=== PATIENT | female | born 1980 | race Caucasian/White ===

== ENCOUNTER → 2017-02-10 | Outpatient (CLI) | payer OTHER ==
--- NOTE | 2017-02-10 12:51 | REP ---
Clinical: Recent trauma. Technique: AP view of the chest with multiple oblique views of the left hemithorax. Findings: Nondisplaced acute fracture of the left eighth and ninth ribs. Trace left basilar atelectasis. No pleural effusion or pneumothorax. Impression: Acute left eighth and ninth rib fractures. This left basilar atelectasis. Signed by Juan Carlos Schmitz MD 02/10/2017 12:43 P
== END ==
LOC: M ADAMS 12:19
PROVIDERS: ATTEND Physician Assistant
DX: R07.9 Chest pain, unspecified (principal)

== ENCOUNTER → 2017-04-03 | Outpatient (REF) | payer OTHER ==
[2017-04-03 12:36] LABS: BASO % 0.8 % (0.0-1.0); EOS % 1.7 % (0.0-3.0); LARGE UNSTAINED CELL # 0.1 K/mm3 (0.0-0.4); LARGE UNSTAINED CELL % 3.4 % (0.0-4.0); LYMPH # 1.3 K/mm3 (1.5-4.5); LYMPH % 47.1 % (24.0-44.0); MEAN CORPUSCULAR HEMOGLOBIN 35.8 pg (27.0-33.0); MEAN CORPUSCULAR HGB CONC 34.1 g/dl (32.0-36.5); MEAN CORPUSCULAR VOLUME 105.1 fl (80.0-96.0); MONO # 0.2 K/mm3 (0.0-0.8); MONO % 5.8 % (0.0-5.0); NEUTROPHILS # 1.2 K/mm3 (1.8-7.7); NEUTROPHILS % 41.2 % (36.0-66.0); PLATELET COUNT, AUTOMATED 178 k/mm3 (150-450); RED CELL DISTRIBUTION WIDTH 11.7 % (11.5-14.5); WHITE BLOOD COUNT 2.8 K/mm3 (4.0-10.0)
== END ==
LOC: M LABDRWAD 12:05
PROVIDERS: ATTEND Physician Assistant Medical
DX: M79.671 Pain in right foot (principal)

== ENCOUNTER → 2017-10-03 | Outpatient (REF) | payer OTHER | LOC: M LAB REF 13:27 | PROVIDERS: ATTEND Nurse Practitioner Adult Health | DX: D64.9 Anemia, unspecified (principal) ==

== ENCOUNTER → 2017-10-08 | Outpatient (REF) | payer OTHER | LOC: M LAB REF 20:52 | PROVIDERS: ATTEND Physician Assistant | DX: N39.0 Urinary tract infection, site not specified (principal) ==

== ENCOUNTER → 2017-12-26 | Outpatient (REF) | payer OTHER | LOC: M LAB REF 18:14 | DX: N30.01 Acute cystitis with hematuria (principal) ==

== ENCOUNTER → 2018-09-30 | Outpatient (REF) | payer OTHER | LOC: M LAB REF 19:22 | DX: R30.0 Dysuria (principal) ==

== ENCOUNTER → 2018-10-10 | Outpatient (REF) | payer OTHER ==
[2018-10-11 15:11] LABS: HEPATITIS A ANTIBODY IGM NEGATIVE (NEGATIVE); HEPATITIS B CORE ANTIBODY IGM NEGATIVE (NEGATIVE); HEPATITIS B SURFACE ANTIGEN NEGATIVE (NEGATIVE)
[2018-10-11 15:11] LABS: HEPATITIS C VIRUS ABY INDEX 0.1 INDEX (<0.8)
== END ==
LOC: M LAB REF 13:15
DX: R74.8 Abnormal levels of other serum enzymes (principal)
CPT/HCPCS: 87340

== ENCOUNTER → 2019-07-11 | Outpatient (REF) | payer OTHER | LOC: M LAB REF 12:34 | PROVIDERS: ATTEND Nurse Practitioner Family | DX: I10 Essential (primary) hypertension (principal) ==

== ENCOUNTER 2020-03-09 16:20 | Emergency (ER) | payer OTHER ==
[~2020-03-09] VITALS: Ht 162.6 cm; Wt 59.2 kg
[2020-03-09] MEDS ORDERED: LEVO25TA5 (16:30)
[2020-03-09] MEDS ORDERED: SERT50TA29 (16:30)
[2020-03-09 18:03] LABS: BASO # 0.1 10^3/uL (0.0-0.2); BASO % 1.6 % (0.0-1.0); HEMATOCRIT 39.6 % (36.0-47.0); HEMOGLOBIN 13.5 g/dl (12.0-15.5); LYMPH # 1.1 10^3/uL (1.5-5.0); LYMPH % 29.9 % (24.0-44.0); MEAN CORPUSCULAR HEMOGLOBIN 35.4 pg (27.0-33.0); MEAN CORPUSCULAR HGB CONC 34.1 g/dl (32.0-36.5); MEAN CORPUSCULAR VOLUME 103.9 fl (80.0-96.0); MONO # 0.6 10^3/uL (0.0-0.8); MONO % 15.7 % (0.0-5.0); NEUTROPHILS % 52.5 % (36.0-66.0); PLATELET COUNT, AUTOMATED 105 10^3/uL (150-450); RED BLOOD COUNT 3.81 10^6/uL (4.00-5.40); WHITE BLOOD COUNT 3.8 10^3/uL (4.0-10.0)
[2020-03-09 18:11] LABS: APPEARANCE, URINE CLEAR (CLEAR); BACTERIA, URINE AUTO NEGATIVE (NEGATIVE); BILIRUBIN, URINE AUTO NEGATIVE (NEGATIVE); BLOOD, URINE BLOOD NEGATIVE (NEGATIVE); COLOR, URINE YELLOW (YELLOW); GLUCOSE, URINE (UA) AUTO NEGATIVE (NEGATIVE); KETONE, URINE AUTO 2+ mg/dL (NEGATIVE); LEUKOCYTE ESTERASE, URINE AUTO NEGATIVE (NEGATIVE); NITRITE, URINE AUTO NEGATIVE (NEGATIVE); PROTEIN, URINE AUTO 1+ mg/dL (NEGATIVE); RBC, URINE AUTO 1 /HPF (0-3); SPECIFIC GRAVITY URINE AUTO 1.011 (1.002-1.035); SQUAMOUS EPITHELIAL CELL UR AU 0 /HPF (0-6); UROBILINOGEN, URINE AUTO 0.2 mg/dL (0.0-2.0); WBC, URINE AUTO 1 /HPF (0-3)
[2020-03-09 18:25] LABS: BLOOD UREA NITROGEN 8 MG/DL (7-18); CALCIUM LEVEL 9.9 MG/DL (8.5-10.1); CARBON DIOXIDE LEVEL 24 MEQ/L (21-32); CHLORIDE LEVEL 92 MEQ/L (98-107); GLOMERULAR FILTRATION RATE > 60.0 (>60); GLUCOSE, FASTING 79 MG/DL (70-100); SODIUM LEVEL 128 MEQ/L (136-145)
[2020-03-09] MEDS ORDERED: PROHANCE 279.3MG/ML 15ML VIAL As Ordered ONE (18:44)
[2020-03-09 19:06] LABS: ALBUMIN 4.2 GM/DL (3.2-5.2); ALT/SGPT 123 U/L (12-78); BILIRUBIN,DIRECT 0.3 MG/DL (0.0-0.2); BILIRUBIN,TOTAL 1.4 MG/DL (0.2-1.0); C REACTIVE PROTEIN QUANTITATIV 0.43 MG/DL (0.00-0.30); TOTAL PROTEIN 8.1 GM/DL (6.4-8.2)
[2020-03-09 19:21] LABS: ERYTHROCYTE SEDIMENTATION RATE 30 mm/hr (0-20)
--- NOTE | 2020-03-09 19:30 | REPVR ---
PROCEDURE INFORMATION: Exam: MR Head Without and With Contrast Exam date and time: 03/09/2020 7:20 PM Age: 39 years old Clinical indication: Visual disturbance; Patient HX: PT states severe h/a for 6 months and worsening, recent vision changes, RT eye buldging facial pain, memory fog, and slight cognitive changes; Additional info: Vision changes, headache x6 months TECHNIQUE: Imaging protocol: MR of the head without and with intravenous contrast. Contrast material: PROHANCE; Contrast volume: 11 ml; Contrast route: 22 COMPARISON: No relevant prior studies available. FINDINGS: No abnormal diffusion restriction to indicate acute CVA. Midline structures and cerebellar tonsillar position appear normal. Ventricles, cisterns and sulci are symmetric and prominent for age. No intracranial mass, midline shift, or abnormal extra-axial fluid. No acute intracranial hemorrhage. White matter structures demonstrate no abnormal FLAIR or T2 signal. CP angle cisterns show normal CSF signal without effacement or mass. No abnormal parenchymal or meningeal enhancement with gadolinium. Vascular flow voids are preserved in vertebro-basilar and carotid vessels. Major dural venous sinuses appear patent. Paranasal sinuses and mastoid air cells are normally aerated. Ocular globes and orbits are unremarkable. No soft tissue abnormality or asymmetry in the posterior nasopharynx. IMPRESSION: No acute intracranial abnormality. Mild symmetric prominence of extra-axial CSF spaces suggesting mild atrophy more than expected for age Electronically signed by: Jose Garcia On 03/09/2020 19:30:30 PM
--- NOTE | 2020-03-09 19:32 | REPVR ---
PROCEDURE INFORMATION: Exam: MR Orbit Without and With Contrast Exam date and time: 03/09/2020 7:19 PM Age: 39 years old Clinical indication: Exophthalmos (bulging eyes); Intermittent exophthalmos; Bilateral; Patient HX: PT states severe h/a for 6 months and worsening, recent vision changes, RT eye buldging facial pain, memory fog, and slight cognitive changes; Additional info: Vision changes, headache x6 months TECHNIQUE: Imaging protocol: MR Orbit was performed without and with intravenous contrast. 3D rendering: MIP and/or 3D reconstructed images were created by the technologist. Contrast material: PROHANCE; Contrast volume: 11 ml; Contrast route: 22; COMPARISON: No relevant prior studies available. FINDINGS: Slightly degraded study secondary to patient motion Optic globes appear normal. No abnormal enhancement or mass No asymmetric enlargement or enhancement of optic nerves. No infiltration of intraconal orbital fat. Normal symmetry and enhancement of extraocular muscles. Normal vascular flow voids in vertebrobasilar/carotid vessels and dural sinuses. No abnormal enhancement of imaged brain parenchyma or meninges. Paranasal sinuses and mastoids show normal aeration IMPRESSION: Unremarkable pre and post contrast MRI of the orbits. No evidence of optic neuritis, mass or other concerning abnormality to explain clinical symptoms Electronically signed by: Jose Garcia On 03/09/2020 19:32:19 PM
[2020-03-09 20:09] VITALS: BP 136/90
[2020-03-09 20:25] LABS: BLOOD UREA NITROGEN 8 MG/DL (7-18); CALCIUM LEVEL 9.9 MG/DL (8.5-10.1); CARBON DIOXIDE LEVEL 23 MEQ/L (21-32); CHLORIDE LEVEL 97 MEQ/L (98-107); CREATININE FOR GFR 0.57 MG/DL (0.55-1.30); GLOMERULAR FILTRATION RATE > 60.0 (>60); GLUCOSE, FASTING 84 MG/DL (70-100); POTASSIUM SERUM 3.9 MEQ/L (3.5-5.1); SODIUM LEVEL 133 MEQ/L (136-145)
[2020-03-10 10:45] LABS: HEPATITIS B SURFACE ANTIGEN NEGATIVE (NEGATIVE)
[2020-03-10 11:13] LABS: HEPATITIS B CORE ANTIBODY IGM NEGATIVE (NEGATIVE); HEPATITIS C VIRUS ABY INDEX 0.1 INDEX (<0.8)
[2020-03-10 11:28] LABS: HEPATITIS A ANTIBODY IGM NEGATIVE (NEGATIVE)
== END 2020-03-09 21:02 | disposition home or self-care (01) ==
LOC: M ED 16:20
DX: H53.9 Unspecified visual disturbance (principal); R79.89 Other specified abnormal findings of blood chemistry; G31.9 Degenerative disease of nervous system, unspecified; E03.9 Hypothyroidism, unspecified; Z79.899 Other long term (current) drug therapy
CPT/HCPCS: 70543; 70553; 80048; 80076; 81001; 82140; 85025; 85652; 86140; 86705; 86709; 86803; 87340; 99284; A9576

== ENCOUNTER → 2020-03-11 | Outpatient (REF) | payer OTHER ==
[~2020-03-11] MED LIST: LEVO25TA5; SERT50TA29
[2020-03-11 19:31] LABS: FERRITIN 1653 NG/ML (8-252); IRON (FE) 151 UG/DL (50-170); PERCENT SATURATION 45.6 % (13.2-45.0); TOTAL IRON BINDING CAPACITY 331 UG/DL (250-450)
[2020-03-11 19:32] LABS: FOLATE > 24.0 NG/ML; VITAMIN B12 LEVEL 374 PG/ML
== END ==
LOC: M LAB REF 17:24
PROVIDERS: ATTEND Internal Medicine
DX: D64.9 Anemia, unspecified (principal)

== ENCOUNTER → 2020-03-17 | Outpatient (REF) | payer OTHER | LOC: M LAB REF 11:13 | PROVIDERS: ATTEND Internal Medicine | DX: F10.180 Alcohol abuse with alcohol-induced anxiety disorder (principal); R94.5 Abnormal results of liver function studies ==

== ENCOUNTER → 2020-04-13 | Outpatient (CLI) | payer OTHER ==
--- NOTE | 2020-04-13 19:01 | REP ---
Clinical: Elevated liver function tests. Technique: Real time frazier scale ultrasound examination using curved array transducer. Findings: The liver is mildly hyperechoic suggesting fatty infiltration. No focal hepatic lesions are identified. Pancreas is normal in appearance and echogenicity. The gallbladder is unremarkable and without gallstones, wall thickening, or pericholecystic fluid. No biliary ductal dilatation is appreciated and the common bile duct measures 3.7 mm diameter. The right kidney is normal in reniform shape without hydronephrosis and measures 11.3 x 5.2 x 5.0 cm. No ascites in the visualized right upper quadrant. Impression: Mild hepatic steatosis suggested without focal hepatic lesion. Electronically Signed by Juan Carlos Schmitz MD 04/13/2020 06:53 P
== END ==
LOC: M RAD 07:50
PROVIDERS: ATTEND Internal Medicine
DX: R74.8 Abnormal levels of other serum enzymes (principal)

== ENCOUNTER → 2020-04-30 | Outpatient (REF) | payer OTHER ==
[2020-04-30 16:58] LABS: PERCENT SATURATION 42.5 % (13.2-45.0)
== END ==
LOC: M LAB REF 16:11
PROVIDERS: ATTEND Internal Medicine
DX: D64.9 Anemia, unspecified (principal)

== ENCOUNTER → 2020-08-05 | Outpatient (REF) | payer OTHER | LOC: M LAB REF 12:24 | PROVIDERS: ATTEND Physician Assistant | DX: N39.0 Urinary tract infection, site not specified (principal) ==

== ENCOUNTER → 2020-08-26 | Outpatient (REF) | payer OTHER | LOC: M LAB REF 12:12 | PROVIDERS: ATTEND Internal Medicine | DX: G60.9 Hereditary and idiopathic neuropathy, unspecified (principal) ==

== ENCOUNTER 2020-10-15 14:19 | Emergency (ER) | payer OTHER ==
[~2020-10-15] VITALS: Ht 162.6 cm; Wt 64.3 kg
[2020-10-15 15:57] LABS: VENOUS BASE EXCESS -2.2 (-2.0-2.0); VENOUS HCO3 21.4 MEQ/L (23.0-27.0); VENOUS O2 SATURATION 77.4 % (60.0-80.0); VENOUS PARTIAL PRESSURE CO2 33.5 mmHg (38.0-50.0); VENOUS PARTIAL PRESSURE O2 43.1 mmHg (30.0-50.0); VENOUS PH 7.424 UNITS (7.330-7.430); VENOUS STANDARD HCO3 22.2 MEQ/L; VENOUS TOTAL CO2 22.5 MEQ/L (24.0-28.0)
[2020-10-15] MEDS ORDERED: THIAMINE 200MG/2ML VIAL (J3411 PER 100MG) IM ONE (16:00)
[2020-10-15 16:01] LABS: BASO % 0.5 % (0.0-1.0); EOS % 0.7 % (0.0-3.0); HEMATOCRIT 38.5 % (36.0-47.0); HEMOGLOBIN 12.8 g/dl (12.0-15.5); LYMPH # 1.4 10^3/uL (1.5-5.0); LYMPH % 32.5 % (24.0-44.0); MEAN CORPUSCULAR HGB CONC 33.2 g/dl (32.0-36.5); MEAN CORPUSCULAR VOLUME 102.1 fl (80.0-96.0); MONO # 0.5 10^3/uL (0.0-0.8); NEUTROPHILS # 2.2 10^3/uL (1.5-8.5); NEUTROPHILS % 53.8 % (36.0-66.0); PLATELET COUNT, AUTOMATED 176 10^3/uL (150-450); RED BLOOD COUNT 3.77 10^6/uL (4.00-5.40); WHITE BLOOD COUNT 4.2 10^3/uL (4.0-10.0)
[2020-10-15 16:19] LABS: INR 0.92; PARTIAL THROMBOPLASTIN TIME 28.1 SECONDS (24.2-38.5); PROTHROMBIN TIME 12.6 SECONDS (12.5-14.3)
[2020-10-15 16:39] LABS: OSMOLALITY SERUM 281 MOSM/KG (275-295)
[2020-10-15 16:44] LABS: ALBUMIN 3.8 GM/DL (3.2-5.2); ALT/SGPT 35 U/L (12-78); BILIRUBIN,DIRECT 0.3 MG/DL (0.0-0.2); BILIRUBIN,TOTAL 0.9 MG/DL (0.2-1.0); BLOOD UREA NITROGEN 7 MG/DL (7-18); CALCIUM LEVEL 9.1 MG/DL (8.5-10.1); CARBON DIOXIDE LEVEL 25 MEQ/L (21-32); CHLORIDE LEVEL 105 MEQ/L (98-107); CK-MB VALUE MASS 2.4 NG/ML (<3.6); CPK CREATINE PHOSPHOKINASE 288 U/L (26-192); CREATININE FOR GFR 0.57 MG/DL (0.55-1.30); ETHYL ALCOHOL (ETHANOL) < 0.003 % (0.000-0.010); GLOMERULAR FILTRATION RATE > 60.0 (>60); GLUCOSE, FASTING 85 MG/DL (70-100); HCG, SERUM QUALITATIVE NEGATIVE (NEGATIVE); MB/CK RELATIVE INDEX 0.83 (< OR =4); POTASSIUM SERUM 3.6 MEQ/L (3.5-5.1); SODIUM LEVEL 137 MEQ/L (136-145); TROPONIN I < 0.02 NG/ML (< 0.10)
[2020-10-15 17:24] LABS: FOLATE > 24.0 NG/ML; VITAMIN B12 LEVEL 527 PG/ML
--- NOTE | 2020-10-15 17:24 | REPVR ---
PROCEDURE INFORMATION: Exam: CT Head Without Contrast Exam date and time: 10/15/2020 5:00 PM Age: 39 years old Clinical indication: Altered mental status/memory loss TECHNIQUE: Imaging protocol: Computed tomography of the head without contrast. Radiation optimization: All CT scans at this facility use at least one of these dose optimization techniques: automated exposure control; mA and/or kV adjustment per patient size (includes targeted exams where dose is matched to clinical indication); or iterative reconstruction. COMPARISON: MRI-Brain W/O FOLL BY WITH 03/09/2020 5:57 PM FINDINGS: Brain: There is no acute intracranial hemorrhage, cerebral edema, or midline shift. Mild advanced for age cerebral and cerebellar substance loss is noted. Cerebral ventricles: No hydrocephalus. Bones/joints: No acute fracture. Paranasal sinuses: Mild frontal sinusitis is present. Mastoid air cells: Visualized mastoid air cells are well aerated. Orbital cavity: Unremarkable as visualized. Soft tissues: Unremarkable. IMPRESSION: 1. No acute intracranial abnormality. 2. Mild frontal sinusitis 3. Chronic findings as discussed above. Electronically signed by: Maciel Middleton On 10/15/2020 17:24:37 PM
[2020-10-15 18:15] VITALS: BP 142/99
--- NOTE | 2020-10-16 06:48 | ECGEPIP ---
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
== END 2020-10-15 18:31 | disposition home or self-care (01) ==
LOC: M ED 14:19
DX: G45.4 Transient global amnesia (principal); I10 Essential (primary) hypertension; E07.9 Disorder of thyroid, unspecified; Z79.899 Other long term (current) drug therapy; Z79.890 Hormone replacement therapy; F10.11 Alcohol abuse, in remission
CPT/HCPCS: 36415; 70450; 80048; 80076; 82140; 82550; 82553; 82607; 82746; 82803; 83605; 83930; 84443; 84484; 84703; 85025; 85610; 85730; 93005; 93041; 96372; 99285; G0480; J3411

== ENCOUNTER → 2020-10-20 | Outpatient (REF) | payer OTHER ==
[2020-10-20 17:14] LABS: INR 0.97; PROTHROMBIN TIME 13.1 SECONDS (12.5-14.3)
[2020-10-20 17:37] LABS: ETHYL ALCOHOL (ETHANOL) 0.178 % (0.000-0.010)
[2020-10-20 18:03] LABS: HEPATITIS B SURFACE ANTIGEN NEGATIVE (NEGATIVE)
[2020-10-20 18:30] LABS: HEPATITIS B CORE ANTIBODY IGM NEGATIVE (NEGATIVE); HEPATITIS C VIRUS ABY INDEX < 0.0 INDEX (<0.8)
[2020-10-20 18:33] LABS: HEPATITIS A ANTIBODY IGM NEGATIVE (NEGATIVE)
== END ==
LOC: M LAB REF 16:46
PROVIDERS: ATTEND Nurse Practitioner Adult Health
DX: F10.180 Alcohol abuse with alcohol-induced anxiety disorder (principal); R18.8 Other ascites

== ENCOUNTER 2021-02-20 12:54 | Emergency (ER) | payer OTHER ==
[~2021-02-20] VITALS: Ht 162.6 cm; Wt 60.0 kg
[2021-02-20] MEDS ORDERED: OXAZEPAM 15 MG CAP PO ONE (13:35)
[2021-02-20] MEDS ORDERED: ONDANSETRON 4MG/2ML VIAL IV ONE (13:40)
[2021-02-20] MEDS ORDERED: THIAMINE 100 MG TAB PO ONE (13:40)
[2021-02-20] MEDS ORDERED: ONDANSETRON 4MG/2ML VIAL As Ordered ONE (13:42)
[2021-02-20 13:52] LABS: BASO # 0.1 10^3/uL (0.0-0.2); BASO % 1.8 % (0.0-1.0); HEMATOCRIT 37.1 % (36.0-47.0); HEMOGLOBIN 12.9 g/dl (12.0-15.5); LYMPH # 0.4 10^3/uL (1.5-5.0); LYMPH % 12.9 % (24.0-44.0); MEAN CORPUSCULAR HEMOGLOBIN 36.9 pg (27.0-33.0); MEAN CORPUSCULAR HGB CONC 34.8 g/dl (32.0-36.5); MONO # 0.3 10^3/uL (0.0-0.8); MONO % 10.2 % (2.0-8.0); NEUTROPHILS # 2.5 10^3/uL (1.5-8.5); NEUTROPHILS % 74.2 % (36.0-66.0); PLATELET COUNT, AUTOMATED 102 10^3/uL (150-450); WHITE BLOOD COUNT 3.3 10^3/uL (4.0-10.0)
[2021-02-20 14:49] LABS: AMPHETAMINES LEVEL URINE NEGATIVE (NEGATIVE); BARBITURATES URINE NEGATIVE (NEGATIVE); BENZODIAZEPINES URINE NEGATIVE (NEGATIVE); CANNABINOIDS URINE NEGATIVE (NEGATIVE); COCAINE METABOLITE URINE NEGATIVE (NEGATIVE); METHADONE URINE NEGATIVE (NEGATIVE); OPIATES URINE NEGATIVE (NEGATIVE); PHENCYCLIDINE URINE NEGATIVE (NEGATIVE)
[2021-02-20] MEDS ORDERED: LORazepam 2 MG TAB PO PRN (15:20)
[2021-02-20 15:40] LABS: HCG, SERUM QUALITATIVE NEGATIVE (NEGATIVE)
[2021-02-20 16:00] LABS: ACETAMINOPHEN LEVEL < 2.0 UG/ML (10.0-30.0); ALBUMIN 4.1 GM/DL (3.2-5.2); ALT/SGPT 78 U/L (12-78); BILIRUBIN,DIRECT 0.6 MG/DL (0.0-0.2); BILIRUBIN,TOTAL 1.9 MG/DL (0.2-1.0); BLOOD UREA NITROGEN 7 MG/DL (7-18); CALCIUM LEVEL 8.9 MG/DL (8.5-10.1); CARBON DIOXIDE LEVEL 26 MEQ/L (21-32); CHLORIDE LEVEL 94 MEQ/L (98-107); CREATININE FOR GFR 0.48 MG/DL (0.55-1.30); ETHYL ALCOHOL (ETHANOL) < 0.003 % (0.000-0.010); GLOMERULAR FILTRATION RATE > 60.0 (>60); GLUCOSE, FASTING 154 MG/DL (70-100); MAGNESIUM LEVEL 1.8 MG/DL (1.8-2.4); POTASSIUM SERUM 3.4 MEQ/L (3.5-5.1); SALICYLATE LEVEL < 1.7 MG/DL (5.0-30.0); SODIUM LEVEL 133 MEQ/L (136-145); TOTAL PROTEIN 7.3 GM/DL (6.4-8.2)
--- NOTE | 2021-02-20 16:19 | ECGEPIP ---
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
--- NOTE | 2021-02-20 16:43 | REP ---
INDICATION: Drug Overdose. COMPARISON: 10/15/2020. TECHNIQUE: CT BRAIN PERFORMED IN THE AXIAL PLANE. CORONAL RECONSTRUCTION IMAGES ARE PERFORMED. FINDINGS: There is mild diffuse atrophy. There is no midline shift or mass effect. Nguyễn-white differentiation is well maintained. There is no acute intracranial hemorrhage or extra-axial fluid collection. No skull fracture is seen. Paranasal sinuses and mastoid air cells are clear. IMPRESSION: Mild atrophy. No acute intracranial findings. <Electronically signed by Paul Nguyễn > 02/20/21 [id number]
[2021-02-20 18:50] LABS: RSV AMPLIFICATION NEGATIVE (NEGATIVE)
[2021-02-20 19:26] VITALS: BP 158/96
[2021-02-21 10:37] LABS: FOLATE > 24.0 NG/ML; VITAMIN B12 LEVEL 484 PG/ML
== END 2021-02-20 19:30 | disposition short-term general hospital (02) ==
LOC: M ED 12:54
DX: F10.10 Alcohol abuse, uncomplicated (principal); E07.9 Disorder of thyroid, unspecified; F33.9 Major depressive disorder, recurrent, unspecified; F41.9 Anxiety disorder, unspecified; Z79.890 Hormone replacement therapy
CPT/HCPCS: 70450; 80047; 80048; 80076; 80143; 80307; 82077; 82607; 82746; 83735; 84443; 84703; 85025; 87631; 93005; 93041; 94760; 96374; 99285; J2405

== ENCOUNTER → 2021-02-25 | Outpatient (CLI) | payer OTHER | LOC: M OUTALCOH 07:38 | PROVIDERS: ATTEND Psychiatry & Neurology Psychiatry | DX: F10.20 Alcohol dependence, uncomplicated (principal) ==

== ENCOUNTER 2021-03-10 10:00 | Outpatient (RCR) | payer OTHER | END 2021-03-11 | LOC: M OUTALCOH 10:00 | PROVIDERS: ATTEND Psychiatry & Neurology Psychiatry | DX: F10.20 Alcohol dependence, uncomplicated (principal) | CPT/HCPCS: 90834; H0050 ==

== ENCOUNTER 2021-04-06 13:46 | Outpatient (RCR) | payer OTHER | END 2021-04-11 | LOC: M OUTALCOH 13:46 | PROVIDERS: ATTEND Psychiatry & Neurology Psychiatry | DX: F10.20 Alcohol dependence, uncomplicated (principal) ==

== ENCOUNTER 2021-05-04 16:00 | Outpatient (RCR) | payer OTHER | END 2021-05-11 | LOC: M OUTALCOH 16:00 | PROVIDERS: ATTEND Psychiatry & Neurology Psychiatry | DX: F10.20 Alcohol dependence, uncomplicated (principal) ==

== ENCOUNTER 2021-06-06 14:02 | Outpatient (RCR) | payer OTHER | END 2021-06-11 | LOC: M OUTALCOH 14:02 | PROVIDERS: ATTEND Psychiatry & Neurology Psychiatry | DX: F10.20 Alcohol dependence, uncomplicated (principal) ==

== ENCOUNTER 2021-06-14 18:23 | Emergency (ER) | payer OTHER ==
[~2021-06-14] VITALS: Ht 162.6 cm; Wt 56.8 kg
[~2021-06-14 18:23] MED LIST changes: -LEVO25TA5; +LEVO25TA5 PO
--- NOTE | 2021-06-14 19:30 | REP ---
INDICATION: fall, injury COMPARISON: None. TECHNIQUE: There are four views. FINDINGS: There is a comminuted fracture of the olecranon process with slight displacement and probable hemarthrosis. There is no dislocation. There are no calcifications or foreign bodies. IMPRESSION: Comminuted olecranon process fracture as described. <Electronically signed by Paul Long > 06/14/211926
[2021-06-14] MEDS ORDERED: HYDR-3713 PO (21:04)
[2021-06-14 21:26] VITALS: BP 124/65
[2021-06-20] MEDS ORDERED: VITMTA PO (09:49)
== END 2021-06-14 21:28 | disposition home or self-care (01) ==
LOC: M ED 18:23
DX: S52.022A Displaced fracture of olecranon process without intraarticular extension of left ulna, initial encounter for closed fracture (principal); W01.0XXA Fall on same level from slipping, tripping and stumbling without subsequent striking against object, initial encounter; Y92.512 Supermarket, store or market as the place of occurrence of the external cause

== ENCOUNTER → 2021-06-20 | Outpatient (CLI) | payer OTHER ==
[~2021-06-20] MED LIST changes: +HYDR-3713 PO; +VITMTA PO
== END ==
LOC: M LABSMTC 11:13
PROVIDERS: ATTEND Anesthesiology
DX: Z01.818 Encounter for other preprocedural examination (principal)

== ENCOUNTER 2021-06-22 11:00 | Day surgery (SDC) | payer OTHER ==
[~2021-06-22] VITALS: Ht 162.6 cm; Wt 54.6 kg
[~2021-06-22 11:00] MED LIST changes: +LR 1,000 ML IV ONE; +ceFAZolin SOD 2 GM in IV 1 EA IV ONE
[2021-06-22] MEDS ORDERED: ACETAMINOPHEN 1000MG 100ML IV BTL (OFIRMEV) (J0131 PER 10MG) As Ordered ONE (11:22)
[2021-06-22] MEDS ORDERED: SUGAMMADEX SODIUM 500 MG/5 ML VIAL (BRIDION) As Ordered ONE (11:22)
[2021-06-22] MEDS ORDERED: dexameTHASONE 4 MG/ML 1ML VIAL (J1100 PER 1MG) As Ordered ONE (11:22)
[2021-06-22] MEDS ORDERED: fentaNYL 100 MCG/2 ML INJECTION (J3010) As Ordered ONE (11:22)
[2021-06-22] MEDS ORDERED: MIDAZOLAM INJ 2MG/2ML VIAL (J2250 PER 1MG) As Ordered ONE (11:22)
[2021-06-22] MEDS ORDERED: propofoL 200 MG/20 ML VIAL As Ordered ONE (11:22)
[2021-06-22] MEDS ORDERED: LIDOCAINE 2% 100MG/5ML SDV (FOR ANES.) As Ordered ONE (11:22)
[2021-06-22] MEDS ORDERED: KETOROLAC 60MG 2ML VIAL As Ordered ONE (11:22)
[2021-06-22] MEDS ORDERED: ONDANSETRON 4MG/2ML VIAL As Ordered ONE (11:22)
[2021-06-22] MEDS ORDERED: ROCURONIUM BROMIDE 50 MG/5 ML VIAL As Ordered ONE (11:22)
[2021-06-22] MEDS ORDERED: HYDROmorphone HCL 2 MG/ML 1ML VIAL (J1170) As Ordered ONE (14:56)
[2021-06-22] MEDS ORDERED: LABETALOL 100MG/20ML VIAL As Ordered ONE (16:30)
[2021-06-22] MEDS ORDERED: BUPIVACAINE/EPIN 0.25% 30 ML VIAL As Ordered ONE (16:54)
[2021-06-22] MEDS ORDERED: PERCOCET 5MG/325MG TAB PO PRN (17:35)
[2021-06-22] MEDS ORDERED: ONDANSETRON 4MG/2ML VIAL IV PRN (17:35)
[2021-06-22] MEDS ORDERED: LR 1,000 ML IV SCH ×2 (17:35)
[2021-06-22] MEDS ORDERED: ACETAMINOPHEN TAB 650MG DOSE (2X325MG) PO PRN (17:35)
[2021-06-22] MEDS ORDERED: MORPHINE 2 MG/ML 1ML VIAL (J2270) IV PRN (17:35)
[2021-06-22] MEDS: fentaNYL 100 MCG/2 ML INJECTION (J3010) IV PRN ×2 (17:37→17:46)
[2021-06-22] MEDS: ONDANSETRON 4MG/2ML VIAL IV PRN ×2 (17:38→18:45)
[2021-06-22] MEDS: oxyCODONE 5MG TAB PO PRN ×2 (17:38→18:14)
--- NOTE | 2021-06-22 17:43 | ROOPDOC ---
[facility] Report Of Operation Report of Operation DATE OF PROCEDURE: 06/22/21 PREPROCEDURE DIAGNOSES: Left olecranon fracture. POSTPROCEDURE DIAGNOSES: Same. PROCEDURE PERFORMED: Left olecranon open reduction internal fixation. SURGEON: Dr. Noemi Rhodes MD CERTIFIED JUVENILE PROBATION OFFICER: ANESTHESIA: General anesthesia Dr. Shaw. ESTIMATED BLOOD LOSS: Approximately 50 mL. COMPLICATIONS: None. REMARKS: None. FINDINGS: Comminuted left olecranon fracture SPECIMENS REMOVED: None PROCEDURE NOTE: This 40-year-old female sustained a comminuted intra-articular left olecranon fracture. We discussed the pros and cons risks of benefits of going ahead with open reduction internal fixation. She wished to proceed. I marked the left upper extremity. She had no further questions. DESCRIPTION OF PROCEDURE: The patient was brought to the operating room theater. They are placed supine on the operating room table. 2 g of IV Ancef was administered prior to the start of the case. General anesthesia was induced. All bony prominences appropriately padded. SCDs on the legs. Bed was turned 90 degrees. Upper extremity prepped and draped in the usual sterile fashion allowing over 3 minutes prep solution drying time prior to draping. Pre operative timeout performed to confirm the site patient and surgery. Sterile tourniquet 18 inch was applied. I did end up inflating this to 250 mmHg for about 2 hours let down at the end of the case. Began by making a standard posterior based incision curving this laterally around the olecranon tip. Arm was placed across the body and then onto the large C arm radiograph machine for xrays. I carried the dissection down through skin and subcutaneous tissue achieve meticulous hemostasis. Identified the fracture site cleared away any interposed fracture periosteum and hematoma. Identified the subcutaneous border of the ulna between FCU and ECU. There is quite a bit of comminution at the joint. One fracture fragment was totally loose had to be removed. I achieved preliminary reduction with the elbow in extension and K wires across the joint. I took intraoperative AP and lateral radiographs to confirm proper reduction. I placed a Synthes low-profile variable angle plate and and fixated the fracture however I was unsatisfied with the reduction at the joint with gapping at the fracture site so I did remove this. I then selected a Synthes precontoured locking plate with the more proximal extension that I precontoured prior to placing this on the bone. I placed a 2.5 mm fully threaded cortical locking screw in the oblong hole to achieve compression across the joint and again pin the joint using 1.25mm K wires in full extension, and direct visualization of the reduction. This achieved good compression and proper fitting along the joint surface with good reduction of the fracture site and congruency of the joint. I then inserted 2 fully threaded cortical screws at the olecranon proximal fragment through the fragment and across the fracture site. I was satisfied with the fixation this appeared solid through full range of motion including few degrees hyperextension which matched her on the other side. I placed 2 locking screws distal to the fracture site as well as one cortical screw that I had previously placed. I took final radiographs. No crepitus of the joint and full ROM with stable fixation. I thoroughly irrigated the joint. I did make a split in the triceps to have the plate sit down nicely onto the proximal fragment that I closed with #2 FiberWire suture and then took the suture through the plate twice in order to fully secure and reinforce the repair. I then closed the subcutaneous tissue with 2-0 Vicryl sutures and cleaned the skin with wet and dry dressing.Prineo wound care system with Dermabond was then applied. This was allowed to fully dry followed by application of abdominal pad dressings 4 by 8 gauze sterile cast padding and above elbow plaster Serina posterior splint with the elbow in slightly less flexion than 90 degrees overwrapped with sterile 6 inch Luis Miguel bandage and a sling for the upper extremity. Patient was woken up from the general anesthetic transferred off the operating table and taken to postanesthetic care unit in stable condition. All sponge needle instrument counts were correct no complications estimated blood loss 50 cc. Plan to the patient discharge home when they are comfortable. Follow-up in the office 2 weeks time. Keep the splint on until he follow-up in clinic. Prescription of choice has been sent into pharmacy electronically. Postoperative wound instructions were given. It was recommended to keep the wound clean and dry. Dressing changes as needed. It was reinforced with the patient that they should call us or be seen immediately for redness, drainage, or fever. Risk factors for harms from taking opioid medications discussed and assessed including but not limited to personal or family history of substance use disorder, anxiety or depression, , age 65 or older, COPD or other underlying respiratory conditions, and renal or hepatic insufficiency. Discussed with patient concerns and determined any harms they may experience or be currently experiencing such as nausea or constipation, feeling sedated or confused, breathing interruptions during sleep, or taking or craving more opioids than prescribed or difficulty controlling use (addiction). Discussed early warning signs of overdose including confusion, sedation, slurred speech, abnormal gait. NOEMI RHODES MD Jun 22, 2021 17:42
[2021-06-22 20:05] VITALS: BP 160/88
--- NOTE | 2021-06-23 08:32 | REP ---
INDICATION: LEFT ELBOW OPEN REDUCTION INTERNAL FIXATION. COMPARISON: Comparison elbow radiographs June 14, 2021.. TECHNIQUE: Two views. 2 minutes 41 seconds of fluoroscopy time is reported. FINDINGS: A sequence of 2 last image hold fluoroscopically obtained spot radiographs of the left elbow document open reduction internal fixation of proximal ulnar fracture. IMPRESSION: Procedural imaging. <Electronically signed by Demetrius Benoit > 06/23/21 0822
== END 2021-06-22 20:05 | disposition home or self-care (01) ==
LOC: M SDC 11:00
PROVIDERS: ATTEND Orthopaedic Surgery Sports Medicine
DX: S52.022A Displaced fracture of olecranon process without intraarticular extension of left ulna, initial encounter for closed fracture (principal); W19.XXXA Unspecified fall, initial encounter; Y92.513 Shop (commercial) as the place of occurrence of the external cause; Y93.9 Activity, unspecified; Y99.9 Unspecified external cause status; E03.9 Hypothyroidism, unspecified; Z79.899 Other long term (current) drug therapy; Z91.81 History of falling
CPT/HCPCS: 24685; 76000; 81025; C1713; J0131; J0690; J1100; J1170; J1885; J2250; J2405; J3010

== ENCOUNTER → 2021-07-05 | Outpatient (CLI) | payer OTHER ==
[~2021-07-05] MED LIST changes: -LR 1,000 ML IV ONE; -ceFAZolin SOD 2 GM in IV 1 EA IV ONE
--- NOTE | 2021-07-05 14:03 | REP ---
INDICATION: ORTHOPEDIC AFTERCARE. COMPARISON: 06/14/2021 TECHNIQUE: AP and lateral views of the left elbow. FINDINGS: Satisfactory open reduction and fixation for proximal ulna/olecranon fracture. No obvious new acute process appreciated. IMPRESSION: Status post satisfactory open reduction and fixation. <Electronically signed by Juan Carlos Schmitz > 07/05/21 [id number]
== END ==
LOC: M SOG 13:35
PROVIDERS: ATTEND Orthopaedic Surgery Sports Medicine
DX: Z47.89 Encounter for other orthopedic aftercare (principal)

== ENCOUNTER 2021-07-11 08:00 | Outpatient (RCR) | payer OTHER | END 2021-07-12 | LOC: M OUTALCOH 08:00 | PROVIDERS: ATTEND Psychiatry & Neurology Psychiatry | DX: F10.20 Alcohol dependence, uncomplicated (principal) ==

== ENCOUNTER 2021-07-11 09:51 | Outpatient (RCR) | payer OTHER | END 2021-07-12 | LOC: M PT 09:51 | PROVIDERS: ATTEND Orthopaedic Surgery Sports Medicine | DX: R47.89 Other speech disturbances (principal) ==

== ENCOUNTER → 2021-07-22 | Outpatient (CLI) | payer OTHER ==
--- NOTE | 2021-07-22 11:12 | REP ---
INDICATION: LT ELBOW FX. COMPARISON: 07/05/2021. TECHNIQUE: AP and lateral left elbow. FINDINGS: Plate and screws are again seen in the proximal ulna. Osseous structures appear intact and well aligned. There is mild linear calcification in the distal triceps tendon. There appears to be a small joint effusion. IMPRESSION: Osseous structures intact and well aligned. <Electronically signed by Paul Nguyễn > 07/22/21 [id number]
== END ==
LOC: M SOG 10:27
PROVIDERS: ATTEND Orthopaedic Surgery Sports Medicine
DX: S52.032D Displaced fracture of olecranon process with intraarticular extension of left ulna, subsequent encounter for closed fracture with routine healing (principal); W18.30XD Fall on same level, unspecified, subsequent encounter; Y92.009 Unspecified place in unspecified non-institutional (private) residence as the place of occurrence of the external cause

== ENCOUNTER 2021-08-08 16:00 | Outpatient (RCR) | payer OTHER | END 2021-08-11 | LOC: M OUTALCOH 16:00 | PROVIDERS: ATTEND Psychiatry & Neurology Psychiatry | DX: F10.20 Alcohol dependence, uncomplicated (principal) ==

== ENCOUNTER 2021-08-09 07:00 | Outpatient (RCR) | payer OTHER | END 2021-08-11 | LOC: M PT 07:00 | PROVIDERS: ATTEND Orthopaedic Surgery Sports Medicine | DX: Z47.89 Encounter for other orthopedic aftercare (principal) ==

== ENCOUNTER 2021-08-22 14:08 | Outpatient (RCR) | payer OTHER | END 2021-09-11 | LOC: M PT 14:08 | PROVIDERS: ATTEND Orthopaedic Surgery Sports Medicine | DX: Z47.89 Encounter for other orthopedic aftercare (principal) ==

== ENCOUNTER → 2021-09-02 | Outpatient (CLI) | payer OTHER ==
--- NOTE | 2021-09-04 08:17 | REP ---
INDICATION: LT ULNA FX. COMPARISON: 07/22/2021 TECHNIQUE: AP and lateral views left elbow FINDINGS: Patient is again noted to be status post satisfactory fixation for proximal ulnar/olecranon fracture. Soft tissue swelling, joint effusion and elevation to the fat pad is again noted and essentially unchanged in appearance. IMPRESSION: Stable appearance. Continued surrounding swelling and effusion. <Electronically signed by Juan Carlos Schmitz > 09/04/21 0897
== END ==
LOC: M SOG 14:13
PROVIDERS: ATTEND Orthopaedic Surgery Sports Medicine
DX: S52.032D Displaced fracture of olecranon process with intraarticular extension of left ulna, subsequent encounter for closed fracture with routine healing (principal); M25.422 Effusion, left elbow

== ENCOUNTER 2021-09-05 15:55 | Outpatient (RCR) | payer OTHER | END 2021-09-11 | LOC: M OUTALCOH 15:55 | PROVIDERS: ATTEND Psychiatry & Neurology Psychiatry | DX: F10.20 Alcohol dependence, uncomplicated (principal) ==

== ENCOUNTER 2021-09-22 14:35 | Outpatient (RCR) | payer OTHER | END 2021-10-11 | LOC: M PT 14:35 | PROVIDERS: ATTEND Orthopaedic Surgery Sports Medicine | DX: Z47.89 Encounter for other orthopedic aftercare (principal) ==

== ENCOUNTER → 2021-10-11 | Outpatient (RCR) | payer OTHER | LOC: M OUTALCOH 09-30 15:41 | PROVIDERS: ATTEND Psychiatry & Neurology Psychiatry | DX: F10.20 Alcohol dependence, uncomplicated (principal) ==

== ENCOUNTER → 2022-03-11 | Outpatient (REF) | payer OTHER ==
[2022-03-11 17:55] LABS: APPEARANCE, URINE CLOUDY (CLEAR); BACTERIA, URINE AUTO 1+ (NEGATIVE); BILIRUBIN, URINE AUTO NEGATIVE (NEGATIVE); BLOOD, URINE BLOOD 2+ (NEGATIVE); COLOR, URINE AMBER (YELLOW); GLUCOSE, URINE (UA) AUTO NEGATIVE (NEGATIVE); KETONE, URINE AUTO TRACE mg/dL (NEGATIVE); LEUKOCYTE ESTERASE, URINE AUTO 3+ (NEGATIVE); MUCUS, URINE SMALL (NEGATIVE); NITRITE, URINE AUTO NEGATIVE (NEGATIVE); PROTEIN, URINE AUTO 3+ mg/dL (NEGATIVE); RBC, URINE AUTO 41 /HPF (0-3); SPECIFIC GRAVITY URINE AUTO 1.011 (1.002-1.035); SQUAMOUS EPITHELIAL CELL UR AU 2 /HPF (0-6); UROBILINOGEN, URINE AUTO 0.2 mg/dL (0.0-2.0); WBC, URINE AUTO TNTC /HPF (0-3)
== END ==
LOC: M LAB REF 17:01
PROVIDERS: ATTEND Physician Assistant Medical
DX: R30.0 Dysuria (principal); R53.83 Other fatigue; R11.2 Nausea with vomiting, unspecified; R50.9 Fever, unspecified

== ENCOUNTER → 2022-05-30 | Outpatient (REF) | payer OTHER ==
[2022-05-30 17:13] LABS: URINE PREG TEST NEGATIVE (NEGATIVE)
[2022-05-30 17:21] LABS: APPEARANCE, URINE CLOUDY (CLEAR); BACTERIA, URINE AUTO 1+ (NEGATIVE); BILIRUBIN, URINE AUTO NEGATIVE (NEGATIVE); BLOOD, URINE BLOOD 1+ (NEGATIVE); COLOR, URINE AMBER (YELLOW); GLUCOSE, URINE (UA) AUTO NEGATIVE (NEGATIVE); KETONE, URINE AUTO 1+ mg/dL (NEGATIVE); LEUKOCYTE ESTERASE, URINE AUTO 1+ (NEGATIVE); MUCUS, URINE SMALL (NEGATIVE); NITRITE, URINE AUTO POSITIVE (NEGATIVE); PROTEIN, URINE AUTO 2+ mg/dL (NEGATIVE); RBC, URINE AUTO 1 /HPF (0-3); SPECIFIC GRAVITY URINE AUTO 1.019 (1.002-1.035); SQUAMOUS EPITHELIAL CELL UR AU 19 /HPF (0-6); UROBILINOGEN, URINE AUTO 0.2 mg/dL (0.0-2.0); WBC, URINE AUTO 22 /HPF (0-3)
[2022-05-30 18:11] LABS: GC DNA AMPLIFICATION NEGATIVE (NEGATIVE)
== END ==
LOC: M LAB REF 16:20
PROVIDERS: ATTEND Physician Assistant Medical
DX: N39.0 Urinary tract infection, site not specified (principal); Z20.2 Contact with and (suspected) exposure to infections with a predominantly sexual mode of transmission

== ENCOUNTER → 2024-11-18 | Outpatient (CLI) | payer OTHER ==
[~2024-11-18] MED LIST changes: +FOLI1TAB11 PO; +NORE0.353 PO; +THIA100T7 PO; +THIA100TA PO; +VITA400T15 PO
== END ==
LOC: M RAD 10:48
PROVIDERS: ATTEND Specialist
DX: R10.2 Pelvic and perineal pain (principal)

== ENCOUNTER → 2025-01-12 | Outpatient (CLI) | payer OTHER ==
[~2025-01-12] MED LIST changes: +CENTCHW4 PO; +MULTCHW12 PO
[2025-01-12 13:06] LABS: BASO # 0.1 10^3/uL (0.0-0.2); BASO % 1.6 % (0.0-1.0); EOS % 0.3 % (0.0-3.0); HEMATOCRIT 35.9 % (36.0-47.0); LYMPH # 1.2 10^3/uL (1.5-5.0); LYMPH % 39.9 % (24.0-44.0); MEAN CORPUSCULAR HEMOGLOBIN 34.2 pg (27.0-33.0); MEAN CORPUSCULAR HGB CONC 33.4 g/dl (32.0-36.5); MEAN CORPUSCULAR VOLUME 102.3 fl (80.0-96.0); MONO # 0.4 10^3/uL (0.0-0.8); MONO % 12.7 % (2.0-8.0); NEUTROPHILS # 1.4 10^3/uL (1.5-8.5); NEUTROPHILS % 45.2 % (36.0-66.0); RED BLOOD COUNT 3.51 10^6/uL (4.00-5.40); WHITE BLOOD COUNT 3.1 10^3/uL (4.0-10.0)
[2025-01-12 13:07] LABS: PLATELET COUNT, AUTOMATED 45 10^3/uL (150-450)
[2025-01-12 13:34] LABS: ALBUMIN 3.9 G/DL (3.2-5.2); ALKALINE PHOSPHATASE 189 U/L (35-104); ALT/SGPT 71 U/L (7.0-40); AST/SGOT 224 U/L (<34); BILIRUBIN,TOTAL 1.2 MG/DL (0.3-1.2); BLOOD UREA NITROGEN 7 MG/DL (9-23); CARBON DIOXIDE LEVEL 27 MMOL/L (20-31); CHLORIDE LEVEL 102 MMOL/L (98-107); CREATININE FOR GFR 0.42 MG/DL (0.55-1.30); GLOMERULAR FILTRATION RATE > 60.0 (>58); GLUCOSE, FASTING 100 MG/DL (60-100); POTASSIUM SERUM 4.1 MMOL/L (3.5-5.1); SODIUM LEVEL 141 MMOL/L (136-145)
== END ==
LOC: M PLALAB 09:47
PROVIDERS: ATTEND Student in an Organized Health Care Education/Training Program
DX: Z01.818 Encounter for other preprocedural examination (principal)

== ENCOUNTER → 2025-08-19 | Outpatient (CLI) | payer OTHER ==
[2025-08-19 15:37] LABS: PLATELET COUNT, AUTOMATED 68 10^3/uL (150-450)
== END ==
LOC: M PLALAB 13:37
PROVIDERS: ATTEND Specialist
DX: N92.6 Irregular menstruation, unspecified (principal)

== ENCOUNTER 2025-08-26 05:55 | Observation (INO) | payer OTHER ==
[2025-08-26] VITALS (8 sets, daily range): BP systolic 95–119; BP diastolic 60–86; TEMP 97.2–100.9; O2SAT 18–96
[~2025-08-26] VITALS: Ht 162.6 cm; Wt 56.8 kg
[2025-08-26 06:28] LABS: PLATELET COUNT, AUTOMATED 108 10^3/uL (150-450)
[2025-08-26 06:57] LABS: HCG, SERUM QUALITATIVE NEGATIVE (NEGATIVE)
[2025-08-26] MEDS ORDERED: ROCURONIUM BROMIDE 50MG/5ML VIAL As Ordered ONE (07:13)
[2025-08-26] MEDS ORDERED: MIDAZOLAM INJ 2 MG/2 ML VIAL As Ordered ONE (07:13)
[2025-08-26] MEDS ORDERED: LIDOCAINE 2% 100 MG/5 ML SDV (FOR ANES.) As Ordered ONE (07:13)
[2025-08-26] MEDS ORDERED: ONDANSETRON 4MG 2ML VIAL As Ordered ONE (07:14)
[2025-08-26] MEDS ORDERED: ACETAMINOPHEN 1000MG/100ML IV BAG As Ordered ONE (07:14)
[2025-08-26] MEDS ORDERED: dexmedeTOMIDine (4 MCG/ML) 200 MCG/50 ML BTL As Ordered ONE (07:14)
[2025-08-26] MEDS ORDERED: dexAMETHasone 4 MG/ML 1 ML VIAL As Ordered ONE (07:14)
[2025-08-26] MEDS: SCOPOLAMINE 1MG TRANSDERMAL PATCH TOP ONE (07:24)
[2025-08-26] MEDS: FAMOTIDINE 20 MG/2 ML VIAL IVP ONE (07:25)
[2025-08-26] MEDS: GABAPENTIN 300 MG CAP PO ONE (07:25)
[2025-08-26] MEDS: ceFAZolin SOD 2 GM IV ONCE IV ONE (07:48)
[2025-08-26] MEDS ORDERED: SUGAMMADEX SODIUM 500 MG/5 ML VIAL As Ordered ONE (08:21)
[2025-08-26] MEDS ORDERED: KETOROLAC 30 MG/ML 1 ML VIAL As Ordered ONE (08:43)
[2025-08-26] MEDS ORDERED: HYDROMORPHONE HCL 0.5 MG/0.5 ML SYRINGE IV PRN (10:35)
[2025-08-26] MEDS ORDERED: MORPHINE 4 MG/ML 1 ML VIAL IV PRN (10:35)
[2025-08-26] MEDS ORDERED: IBUP600T42 PO (12:57)
[2025-08-26] MEDS ORDERED: OXYC-517 PO (12:58)
[2025-08-26] MEDS: LR 1,000 ML IV SCH (15:00)
[2025-08-26] MEDS: ONDANSETRON 4MG 2ML VIAL IV PRN (15:58)
[2025-08-26] MEDS: ceFAZolin SOD 1 GM in DEXTROSE 5% (D5W) ADV/MINI-BAG 50 ML IV SCH (16:28)
[2025-08-26] MEDS: DOCUSATE SODIUM 100 MG CAPSULE PO SCH (22:08)
[2025-08-26] MEDS: KETOROLAC 30 MG/ML 1 ML VIAL IV PRN (22:09)
[2025-08-26] MEDS: ACETAMINOPHEN 500 MG TAB PO PRN (23:04)
[2025-08-27] VITALS: BP 118/77
[2025-08-27 04:00] VITALS: BP 131/88
[2025-08-27 06:03] VITALS: BP 136/88; TEMP 98.8; O2SAT 95
[2025-08-27 06:08] LABS: BASO # 0.0 10^3/uL (0.0-0.2); BASO % 0.5 % (0.0-1.0); EOS # 0.0 10^3/uL (0.0-0.5); EOS % 0.0 % (0.0-3.0); LYMPH # 1.3 10^3/uL (1.5-5.0); LYMPH % 29.1 % (24.0-44.0); MONO # 0.5 10^3/uL (0.0-0.8); MONO % 11.4 % (2.0-8.0); NEUTROPHILS # 2.6 10^3/uL (1.5-8.5); NEUTROPHILS % 58.5 % (36.0-66.0)
[2025-08-27 06:11] LABS: PLATELET COUNT, AUTOMATED 65 10^3/uL (150-450)
[2025-08-27 06:33] LABS: ALT/SGPT 38 U/L (7.0-40); AST/SGOT 95 U/L (<34); CALCIUM LEVEL 8.1 MG/DL (8.5-10.1); CARBON DIOXIDE LEVEL 28 MMOL/L (20-31); CHLORIDE LEVEL 101 MMOL/L (98-107); CREATININE FOR GFR 0.43 MG/DL (0.55-1.30); GLOMERULAR FILTRATION RATE > 90.0 (>58); POTASSIUM SERUM 3.4 MMOL/L (3.5-5.1); SODIUM LEVEL 139 MMOL/L (136-145)
[2025-08-27 07:46] VITALS: BP 134/88
[2025-08-27] MEDS ORDERED: NITR100C2 PO (10:55)
[2025-08-28] MEDS ORDERED: MED REC COMMENT (15:48)
== END 2025-08-27 10:25 | disposition home or self-care (01) ==
LOC: M SDC 05:55 → M RR INP 10:18 → M MS5PR 14:25
PROVIDERS: ADMIT Specialist; ATTEND Specialist
DX: D26.0 Other benign neoplasm of cervix uteri (principal); N85.8 Other specified noninflammatory disorders of uterus; N83.299 Other ovarian cyst, unspecified side; N83.00 Follicular cyst of ovary, unspecified side; N83.8 Other noninflammatory disorders of ovary, fallopian tube and broad ligament; D39.8 Neoplasm of uncertain behavior of other specified female genital organs; N99.72 Accidental puncture and laceration of a genitourinary system organ or structure during other procedure; F10.239 Alcohol dependence with withdrawal, unspecified; E03.9 Hypothyroidism, unspecified; Z91.018 Allergy to other foods
CPT/HCPCS: 36415; 58571; 80053; 84703; 85025; 85027; 85049; 85055; 86850; 86900; 86901; 88307; 96374; 96375; 96376; J0131; J0665; J0688; J0690; J1100; J1885; J2250; J2405; J3010; S2900

== ENCOUNTER 2025-08-27 19:59 | Inpatient (IN) | payer OTHER ==
[~2025-08-27] VITALS: Ht 162.6 cm; Wt 73.8 kg
[~2025-08-27 19:59] MED LIST changes: +IBUP600T42 PO; +NITR100C2 PO; +OXYC-517 PO
[2025-08-27] MEDS: LIDOCAINE 2% 5 ML JELLY UROJET TOP ONE (22:10)
[2025-08-27 22:13] LABS: VENOUS BASE EXCESS -1.9 (-2.0-2.0); VENOUS HCO3 21.6 MMOL/L (23.0-27.0); VENOUS O2 SATURATION 90.2 % (60.0-80.0); VENOUS PARTIAL PRESSURE CO2 32.4 mmHg (38.0-50.0); VENOUS PARTIAL PRESSURE O2 59.3 mmHg (30.0-50.0); VENOUS PH 7.442 UNITS (7.330-7.430); VENOUS STANDARD HCO3 22.8 MMOL/L; VENOUS TOTAL CO2 22.6 MMOL/L (24.0-28.0)
[2025-08-27 22:29] LABS: BASO # 0.0 10^3/uL (0.0-0.2); BASO % 0.5 % (0.0-1.0); EOS # 0.0 10^3/uL (0.0-0.5); EOS % 0.3 % (0.0-3.0); LYMPH # 0.6 10^3/uL (1.5-5.0); LYMPH % 17.2 % (24.0-44.0); MONO # 0.2 10^3/uL (0.0-0.8); MONO % 4.0 % (2.0-8.0); NEUTROPHILS # 2.9 10^3/uL (1.5-8.5); NEUTROPHILS % 77.5 % (36.0-66.0)
[2025-08-27 22:38] LABS: PLATELET COUNT, AUTOMATED 75 10^3/uL (150-450)
[2025-08-27 22:40] LABS: ETHYL ALCOHOL (ETHANOL) < 0.003 % (0.000-0.010); INR 1.22
[2025-08-27 22:41] LABS: CPK CREATINE PHOSPHOKINASE 195 U/L (34-145)
[2025-08-27 22:42] LABS: SALICYLATE LEVEL < 3.0 MG/DL (<30)
[2025-08-27 22:52] LABS: OSMOLALITY SERUM 278 MOSM/KG (275-295)
[2025-08-27 23:02] LABS: AMPHETAMINES LEVEL URINE NEGATIVE (NEGATIVE); BARBITURATES URINE NEGATIVE (NEGATIVE); BENZODIAZEPINES URINE NEGATIVE (NEGATIVE); CANNABINOIDS URINE NEGATIVE (NEGATIVE); COCAINE METABOLITE URINE NEGATIVE (NEGATIVE); METHADONE URINE NEGATIVE (NEGATIVE); OPIATES URINE NEGATIVE (NEGATIVE); PHENCYCLIDINE URINE NEGATIVE (NEGATIVE)
[2025-08-27 23:19] LABS: ALT/SGPT 40 U/L (7.0-40); AST/SGOT 101 U/L (<34); CALCIUM LEVEL 8.2 MG/DL (8.5-10.1); CARBON DIOXIDE LEVEL 24 MMOL/L (20-31); CHLORIDE LEVEL 101 MMOL/L (98-107); CK-MB VALUE MASS 6.8 NG/ML (<3.6); CREATININE FOR GFR 0.43 MG/DL (0.55-1.30); GLOMERULAR FILTRATION RATE > 90.0 (>58); MB/CK RELATIVE INDEX 3.48 (< OR =4); POTASSIUM SERUM 3.2 MMOL/L (3.5-5.1); SODIUM LEVEL 138 MMOL/L (136-145)
[2025-08-28 00:02] LABS: FREE T4 1.28 NG/DL (0.89-1.76)
[2025-08-28] MEDS: MIDAZOLAM INJ 2 MG/2 ML VIAL IV ONE (00:12)
[2025-08-28] MEDS: MULTIVITAMIN -ADULT INJECTION 10 ML, THIAMINE INJection 100 MG, FOLIC ACID 1 MG in NS (... IV ONE ×2 (00:20→14:00)
[2025-08-28 00:44] LABS: KETONE, URINE AUTO RFX 1+ mg/dL (NEGATIVE); MUCUS, URINE RFX SMALL (NEGATIVE); NITRITE, URINE AUTO RFX NEGATIVE (NEGATIVE); RBC, URINE AUTO RFX TNTC /HPF (0-3); SQUAM EPITHELIAL CELL UR AURFX 1 /HPF (0-6)
[2025-08-28 00:46] LABS: LEUKOCYTE ESTERASE UR AUTO RFX TRACE (NEGATIVE); WBC, URINE AUTO RFX 21 /HPF (0-3)
[2025-08-28] MEDS ORDERED: MAALOX 30 ML SUSP *UDC PO PRN (04:55)
[2025-08-28] MEDS ORDERED: ACETAMINOPHEN 325 MG TAB PO PRN (04:55)
[2025-08-28] MEDS ORDERED: MULTIVITAMIN -ADULT INJECTION 10 ML, THIAMINE INJection 100 MG, FOLIC ACID 1 MG in NS (... IV ONE (04:55)
[2025-08-28] MEDS ORDERED: MOM 30 ML SUSPENSION UDC PO PRN (04:55)
[2025-08-28] MEDS: POTASSIUM CHLORIDE 10% LIQ 20MEQ/15ML UDC PO ONE (07:15)
[2025-08-28] MEDS: THIAMINE 100 MG TAB PO SCH (07:26)
[2025-08-28] MEDS: OXAZEPAM 15MG CAP PO SCH (07:35)
[2025-08-28 07:37] LABS: HEPATITIS C VIRUS ABY INDEX < 0.02 INDEX (<0.8)
[2025-08-28] MEDS: LEVOTHYROXINE 25 MCG TABLET (0.025MG) PO SCH (07:37)
[2025-08-28] MEDS: NS (Normal Saline) 0.9% 1,000 ML IV SCH (07:42)
[2025-08-28] MEDS ORDERED: cefTRIAXone SOD 1 GM in DEXTROSE 5% (D5W) ADV/MINI-BAG 50 ML IV SCH (08:00)
[2025-08-28] MEDS ORDERED: ISOVUE-370 76% 100 ML VIAL As Ordered ONE (08:15)
[2025-08-28] MEDS ORDERED: MED REC IN PROGRESS XX SCH (08:20)
[2025-08-28 08:25] LABS: ALT/SGPT 37 U/L (7.0-40); AST/SGOT 96 U/L (<34); CALCIUM LEVEL 8.0 MG/DL (8.5-10.1); CARBON DIOXIDE LEVEL 21 MMOL/L (20-31); CHLORIDE LEVEL 104 MMOL/L (98-107); CREATININE FOR GFR 0.36 MG/DL (0.55-1.30); GLOMERULAR FILTRATION RATE > 90.0 (>58); POTASSIUM SERUM 3.3 MMOL/L (3.5-5.1); SODIUM LEVEL 138 MMOL/L (136-145)
[2025-08-28 08:38] LABS: PLATELET COUNT, AUTOMATED 68 10^3/uL (150-450)
[2025-08-28] MEDS: MULTIVITAMINS/MINERALS THERAP 1 TAB PO SCH (09:00)
[2025-08-28] MEDS ORDERED: ENOXAPARIN 40 MG/0.4 ML SYRINGE (J1650 PER 10MG) SC SCH (09:00)
[2025-08-28] MEDS ORDERED: chlordiazePOXIDE 25 MG CAP PO SCH (09:00)
[2025-08-28] MEDS: FOLIC ACID 1 MG TAB PO SCH (09:00)
[2025-08-28] MEDS: PANTOPRAZOLE 40MG VIAL IV SCH (09:26)
[2025-08-28] MEDS: PIPERACILLIN/TAZOBACTAM SOD 3.375 GM in DEXTROSE 5% (D5W) ADV/MINI-BAG 50 ML IV SCH (09:26)
[2025-08-28] MEDS: ACETAMINOPHEN *IV* 1,000 MG in IV 1 EA IV PRN (09:45)
[2025-08-28] MEDS: KCL 10MEQ/100ML SWI (KRUN) 10 MEQ in IV 1 EA IV SCH (10:35)
[2025-08-28] MEDS: VANCOMYCIN HCL 1,750 MG, VIAL MATE ADAPTER 1 EACH in NS 500 ML IV ONE (10:51)
[2025-08-28 11:54] LABS: MAGNESIUM LEVEL 1.0 MG/DL (1.8-2.4)
[2025-08-28] MEDS: MAG SULF 1GM/100ML (MAG RUN) 1 GM in IV 1 EA IV ONE (12:43)
[2025-08-28] MEDS ORDERED: MED REC COMMENT (15:48)
[2025-08-28] MEDS ORDERED: HOME MED LIST COMPLETE! XX SCH (15:50)
[2025-08-28] MEDS: VANCOMYCIN HCL 1,000 MG, VIAL MATE ADAPTER 1 EACH in NS 250 ML IV SCH (16:50)
[2025-08-28 19:00] VITALS: BP 112/67; O2SAT 97
[2025-08-28 20:00] VITALS: BP 114/73; TEMP 99.7; O2SAT 97
[2025-08-28] MEDS: HEPARIN SOD 5000 UNITS/ML 1 ML VIAL/SYRINGE SQ SCH (20:07)
[2025-08-28 21:00] VITALS: BP 123/61; O2SAT 97
[2025-08-28 22:00] VITALS: BP 133/90; O2SAT 99
[2025-08-28 23:00] VITALS: BP 131/69; O2SAT 100
[2025-08-29] VITALS (12 sets, daily range): BP systolic 107–146; BP diastolic 59–81; TEMP 98.9–100.6; O2SAT 98–100
[2025-08-29] MEDS: LEVOTHYROXINE 100 MCG (0.1 MG) 5ML SDV PF (SOLUTION FORM) IV SCH (06:16)
[2025-08-29 07:48] LABS: PLATELET COUNT, AUTOMATED 80 10^3/uL (150-450)
[2025-08-29 07:59] LABS: VANCOMYCIN LEVEL TROUGH 9.3 UG/ML (10.0-20.0)
[2025-08-29 08:05] LABS: ALT/SGPT 34 U/L (7.0-40); AST/SGOT 81 U/L (<34); CALCIUM LEVEL 7.4 MG/DL (8.5-10.1); CARBON DIOXIDE LEVEL 24 MMOL/L (20-31); CHLORIDE LEVEL 102 MMOL/L (98-107); CREATININE FOR GFR 0.39 MG/DL (0.55-1.30); GLOMERULAR FILTRATION RATE > 90.0 (>58); MAGNESIUM LEVEL 1.5 MG/DL (1.8-2.4); POTASSIUM SERUM 2.8 MMOL/L (3.5-5.1); SODIUM LEVEL 139 MMOL/L (136-145)
[2025-08-29] MEDS ORDERED: ONDANSETRON 4MG 2ML VIAL IV PRN (08:50)
[2025-08-29] MEDS ORDERED: ACETAMINOPHEN 325 MG TAB PO PRN (08:50)
[2025-08-29] MEDS ORDERED: KCL 10MEQ/100ML SWI (KRUN) 10 MEQ in IV 1 EA IV SCH (09:00)
[2025-08-29] MEDS ORDERED: LEVOTHYROXINE 100 MCG (0.1 MG) 5ML SDV PF (SOLUTION FORM) IV SCH (09:00)
[2025-08-29] MEDS: POTASSIUM CHLORIDE 10MEQ SR TABLET PO ONE (10:05)
[2025-08-29] MEDS: MULTIVITAMINS/MINERALS THERAP 1 TAB PO SCH (10:05)
[2025-08-29] MEDS: KCL 10MEQ/100ML SWI (KRUN) 10 MEQ in IV 1 EA IV SCH (10:05)
[2025-08-29] MEDS: THIAMINE 100 MG TAB PO SCH (10:06)
[2025-08-29] MEDS: FOLIC ACID 1 MG TAB PO SCH (10:06)
[2025-08-29] MEDS: MAGNESIUM OXIDE 400 MG TAB PO SCH (10:07)
[2025-08-29] MEDS: MAG SULF 1GM/100ML (MAG RUN) 1 GM in IV 1 EA IV ONE ×2 (10:10→11:13)
[2025-08-29 13:01] LABS: C REACTIVE PROTEIN QUANTITATIV 3.47 MG/DL (<1.0)
[2025-08-29 13:27] LABS: CHOLESTEROL LEVEL 191.0 MG/DL (<200); CHOLESTEROL RISK RATIO 3.25 (<5); LDL CHOLESTEROL 110.0 MG/DL (<100); NON-HDL-C 132.4 MG/DL; TRIGLYCERIDES LEVEL 112.0 MG/DL (<150)
[2025-08-29 14:53] LABS: CALCIUM LEVEL 7.5 MG/DL (8.5-10.1); CARBON DIOXIDE LEVEL 22 MMOL/L (20-31); CHLORIDE LEVEL 104 MMOL/L (98-107); CREATININE FOR GFR 0.42 MG/DL (0.55-1.30); GLOMERULAR FILTRATION RATE > 90.0 (>58); POTASSIUM SERUM 3.7 MMOL/L (3.5-5.1); SODIUM LEVEL 138 MMOL/L (136-145)
[2025-08-30 03:56] VITALS: BP 133/76; TEMP 99.4; O2SAT 100
[2025-08-30 06:07] LABS: PLATELET COUNT, AUTOMATED 103 10^3/uL (150-450)
[2025-08-30 06:40] LABS: ALT/SGPT 32 U/L (7.0-40); AST/SGOT 81 U/L (<34); CALCIUM LEVEL 8.2 MG/DL (8.5-10.1); CARBON DIOXIDE LEVEL 25 MMOL/L (20-31); CHLORIDE LEVEL 101 MMOL/L (98-107); CREATININE FOR GFR 0.40 MG/DL (0.55-1.30); GLOMERULAR FILTRATION RATE > 90.0 (>58); MAGNESIUM LEVEL 1.7 MG/DL (1.8-2.4); POTASSIUM SERUM 3.1 MMOL/L (3.5-5.1); SODIUM LEVEL 138 MMOL/L (136-145)
[2025-08-30 07:46] VITALS: BP 146/89; TEMP 97.9; O2SAT 98
[2025-08-30] MEDS: MAG SULF 1GM/100ML (MAG RUN) 1 GM in IV 1 EA IV ONE (08:12)
[2025-08-30] MEDS: KCL 10MEQ/100ML SWI (KRUN) 10 MEQ in IV 1 EA IV SCH (10:14)
[2025-08-30] MEDS: POTASSIUM CHLORIDE 10MEQ SR TABLET PO ONE ×2 (10:15→11:56)
[2025-08-30 12:23] VITALS: BP 123/79; TEMP 98.1; O2SAT 98
[2025-08-30 16:46] VITALS: BP 127/82; TEMP 99; O2SAT 97
[2025-08-30 20:19] VITALS: BP 141/84; TEMP 100.3; O2SAT 97
[2025-08-30] MEDS: diphenhydrAMINE 50 MG/ML VIAL IV STA (21:00)
[2025-08-30 23:34] VITALS: BP 129/82; TEMP 99.4; O2SAT 98
[2025-08-31 04:14] VITALS: BP 121/81; TEMP 98.8; O2SAT 98
[2025-08-31 05:37] LABS: PLATELET COUNT, AUTOMATED 118 10^3/uL (150-450)
[2025-08-31 05:59] LABS: ALT/SGPT 34 U/L (7.0-40); AST/SGOT 79 U/L (<34); C REACTIVE PROTEIN QUANTITATIV 1.78 MG/DL (<1.0); CALCIUM LEVEL 8.7 MG/DL (8.5-10.1); CARBON DIOXIDE LEVEL 24 MMOL/L (20-31); CHLORIDE LEVEL 104 MMOL/L (98-107); CREATININE FOR GFR 0.43 MG/DL (0.55-1.30); GLOMERULAR FILTRATION RATE > 90.0 (>58); POTASSIUM SERUM 3.3 MMOL/L (3.5-5.1); SODIUM LEVEL 138 MMOL/L (136-145)
[2025-08-31 06:34] LABS: MAGNESIUM LEVEL 1.6 MG/DL (1.8-2.4)
[2025-08-31 09:15] VITALS: BP 127/81; TEMP 98.5; O2SAT 98
[2025-08-31] MEDS: POTASSIUM CHLORIDE 10MEQ SR TABLET PO ONE (11:10)
[2025-08-31] MEDS: MAG SULF 1GM/100ML (MAG RUN) 1 GM in IV 1 EA IV SCH (11:11)
[2025-08-31] MEDS: POTASSIUM CHLORIDE 10MEQ SR TABLET PO SCH (12:24)
[2025-08-31] MEDS: AUGMENTIN 875 MG TAB PO SCH (12:29)
[2025-08-31 12:31] VITALS: BP 107/71; TEMP 99; O2SAT 98
[2025-08-31 16:00] VITALS: BP 149/80; TEMP 97.5; O2SAT 98
[2025-08-31] MEDS: MAGNESIUM OXIDE 400 MG TAB PO SCH (16:28)
[2025-08-31 19:27] VITALS: BP 110/69; TEMP 98.8; O2SAT 100
[2025-08-31 23:59] VITALS: BP 131/91; TEMP 99.6; O2SAT 98
[2025-09-01 04:08] VITALS: BP 135/84; TEMP 98.5; O2SAT 97
[2025-09-01 05:22] LABS: PLATELET COUNT, AUTOMATED 119 10^3/uL (150-450)
[2025-09-01 05:48] LABS: ALT/SGPT 33 U/L (7.0-40); AST/SGOT 75 U/L (<34); CALCIUM LEVEL 8.7 MG/DL (8.5-10.1); CARBON DIOXIDE LEVEL 24 MMOL/L (20-31); CHLORIDE LEVEL 102 MMOL/L (98-107); CREATININE FOR GFR 0.38 MG/DL (0.55-1.30); GLOMERULAR FILTRATION RATE > 90.0 (>58); POTASSIUM SERUM 3.6 MMOL/L (3.5-5.1); SODIUM LEVEL 137 MMOL/L (136-145)
[2025-09-01 08:00] VITALS: BP 121/79; TEMP 100; O2SAT 98
[2025-09-01 11:40] VITALS: BP 119/81; TEMP 97.4; O2SAT 98
[2025-09-01 12:07] VITALS: TEMP 98.7
[2025-09-01] MEDS ORDERED: AMOX875T2 PO (14:02)
[2025-09-01] MEDS ORDERED: FOLI1TAB11 PO (14:02)
[2025-09-01] MEDS ORDERED: THIA100TA PO (14:02)
[2025-09-01] MEDS ORDERED: MAGN500T12 PO (14:02)
[2025-09-02] MEDS ORDERED: LEVOTHYROXINE 25 MCG TABLET (0.025MG) PO SCH (06:00)
== END 2025-09-01 15:55 | disposition home or self-care (01) | DRG 720 ==
LOC: M ED 19:59 → M ED INP 08-28 04:52 → M ICU 08-28 08:38 → M MSPAV 09-01 11:30
PROVIDERS: ADMIT Student in an Organized Health Care Education/Training Program; ATTEND Internal Medicine Nephrology
DX: A41.9 Sepsis, unspecified organism (principal); G93.41 Metabolic encephalopathy; D61.818 Other pancytopenia; F10.131 Alcohol abuse with withdrawal delirium; E83.42 Hypomagnesemia; K76.0 Fatty (change of) liver, not elsewhere classified; E03.9 Hypothyroidism, unspecified; L71.9 Rosacea, unspecified; E87.6 Hypokalemia; R74.01 Elevation of levels of liver transaminase levels; Z79.890 Hormone replacement therapy; Z79.899 Other long term (current) drug therapy; Z91.018 Allergy to other foods; Z90.710 Acquired absence of both cervix and uterus

== ENCOUNTER → 2025-10-15 | Outpatient (REF) | payer OTHER ==
[~2025-10-15] MED LIST changes: +AMOX875T2 PO; +MAGN500T12 PO; +MED REC COMMENT
[2025-10-15 17:51] LABS: ALT/SGPT 65.0 U/L (7.0-40); AST/SGOT 155.0 U/L (<34)
== END ==
LOC: M LAB REF 17:21
PROVIDERS: ATTEND Internal Medicine Gastroenterology
DX: K70.0 Alcoholic fatty liver (principal)

== ENCOUNTER → 2025-10-30 | Outpatient (CLI) | payer OTHER ==
[2025-10-30 18:34] LABS: HEPATITIS C VIRUS ABY INDEX 0.07 INDEX (<0.8)
== END ==
LOC: M PLALAB 15:49
DX: K74.60 Unspecified cirrhosis of liver (principal)